=== PATIENT | male | born 1975 ===

== ENCOUNTER 2016-12-07 07:31 | Emergency (ER) | payer SELFPAY ==
[2016-12-07 07:37] VITALS: BP 121/69; PULSE 69; RESP 20; TEMP 97.5; O2SAT 98; BMI 28.0
--- NOTE | 2016-12-07 07:53 | ED PDOC ---
HPI: Male Pain Time Seen by Provider: 12/07/16 07:34 Chief Complaint (Nursing): Groin Pain Chief Complaint (Provider): Groin pain History Per: Patient History/Exam Limitations: no limitations Onset/Duration Of Symptoms: Days (x2 weeks) Current Symptoms Are (Timing): Still Present Pain Scale Rating Of: 9 Associated Symptoms: denies: Fever, Nausea, Vomiting, Diarrhea, Constipation, Urinary Symptoms Additional Complaint(s): Caleb Thompson is a 41 year old male, with no past medical history, who presents to the emergency department complaining of left inguinal pain x 2 weeks. Patient reports pain is worst with movement. He denies any other exacerbating factors. Denies fever, nausea, vomiting, diarrhea, constipation, dysuria, hematuria, penile discharge, scrotal pain or swelling. PMD: None provided. Past Medical History Reviewed: Historical Data, Nursing Documentation, Vital Signs Vital Signs: Last Vital Signs Temp 97.5 F L 12/07/16 07:36 Pulse 69 12/07/16 07:36 Resp 20 12/07/16 07:36 BP 121/69 12/07/16 07:36 Pulse Ox 98 12/07/16 07:36 - Surgical History Surgical History: Cholecystectomy - Family History Family History: States: Unknown Family Hx - Social History Current smoker - smoking cessation education provided: Yes (Heavy smoker >10 cigarettes daily) Alcohol: Social Drugs: Denies - Allergies Allergies/Adverse Reactions: Allergies Allergy/AdvReac Type Severity Reaction Status Date / Time No Known Allergies Allergy Verified 12/07/16 07:43 Review of Systems ROS Statement: Except As Marked, All Systems Reviewed And Found Negative Constitutional: Negative for: Fever, Weight loss Cardiovascular: Negative for: Chest Pain Respiratory: Negative for: Cough, Shortness of Breath Gastrointestinal: Negative for: Nausea, Vomiting, Abdominal Pain, Diarrhea, Constipation Genitourinary Male: Positive for: Other (Left inguinal pain). Negative for: Dysuria, Frequency, Incontinence, Hematuria, Penile Discharge, Scrotal Pain (or swelling), Rash, Penile Pain Musculoskeletal: Negative for: Back Pain Skin: Negative for: Rash Neurological: Negative for: Weakness, Numbness Physical Exam - Reviewed Nursing Documentation Reviewed: Yes Vital Signs Reviewed: Yes - Physical Exam Appears: Positive for: Non-toxic Head Exam: Positive for: ATRAUMATIC, NORMAL INSPECTION, NORMOCEPHALIC Skin: Positive for: Normal Color, Warm, Dry Neck: Positive for: Normal, Painless ROM, Supple Respiratory: Negative for: Respiratory Distress Gastrointestinal/Abdominal: Positive for: Normal Exam, Bowel Sounds, Soft. Negative for: Tenderness, Distended Male Genital Exam: Positive for: normal genitalia (circumsized ), hernia mass ( left inguinal hernia easily reducible, no swelling, no tenderness). Negative for: scrotum tenderness (R), scrotum tenderness (L), urethral discharge, other ( No lymphadenopathy in the groin) Back: Positive for: Normal Inspection. Negative for: L CVA Tenderness, R CVA Tenderness Extremity: Positive for: Normal ROM. Negative for: Pedal Edema, Deformity, Swelling Neurologic/Psych: Positive for: Alert, Oriented, Gait (steady). Negative for: Motor/Sensory Deficits - ECG O2 Sat by Pulse Oximetry: 98 (RA) Pulse Ox Interpretation: Normal Medical Decision Making Medical Decision Making: Initial Impression: Inguinal hernia Initial Plan: --Toradol 30 mg IM --reevaluation -Patient has small reducible L inguinal hernia. He is stooling normally and no signs of strangulation. He was informed about options for elective repair. He was referred to general surgery for elective repair of inguinal hernia. Scribe Attestation: Documented by Caesar Menjivar, acting as a scribe for Nohemy Cornejo MD Provider Scribe Attestation: All medical record entries made by the Scribe were at my direction and personally dictated by me. I have reviewed the chart and agree that the record accurately reflects my personal performance of the history, physical exam, medical decision making, and the department course for this patient. I have also personally directed, reviewed, and agree with the discharge instructions and disposition. Disposition - Clinical Impression Clinical Impression: Inguinal hernia - Disposition Referrals: Cassandra Santos MD [Staff Provider] - Disposition: Routine/Home Disposition Time: 07:51 Condition: GOOD Additional Instructions: Follow-up with surgery for further evaluation. Return to ED if condition worsens. Motrin for pain. Instructions: Inguinal Hernia (ED) Forms: [employer] (Urdu), [facility] School/Work Excuse Print Language: ICELANDIC
== END 2016-12-07 08:19 | disposition home or self-care (01) ==
LOC: H.ER 07:31
DX: K40.90 Unilateral inguinal hernia, without obstruction or gangrene, not specified as recurrent (principal)
CPT/HCPCS: 96372; 99282; J1885